=== PATIENT | male | born 1990 | race Caucasian/White ===

== ENCOUNTER 2017-02-15 01:11 | Emergency (ER) | payer OTHER ==
[2017-02-15 01:18] VITALS: TEMP 97.5
--- NOTE | 2017-02-15 01:31 | CPEKG ---
Heart Rate: 65 RR Interval: 923 P-R Interval: 156 QRSD Interval: 76 QT Interval: 404 QTC Interval: 421 P [place]: 68 QRS [place]: 54 T Wave [place]: 23 EKG Severity - NORMAL ECG - EKG Impression: SINUS RHYTHM EKG Impression: ST ELEV, PROBABLE NORMAL EARLY REPOL PATTERN Electronically Signed By: Rosa Bolanos 15-Feb-2017 05:28:31
[2017-02-15] MEDS ORDERED: ACETAMINOPHEN 500 MG TAB PO ONE (02:02)
[2017-02-15] MEDS ORDERED: LIDOCAINE 2% VISCOUS 15 ML UDCUP PO ONE (02:02)
[2017-02-15] MEDS ORDERED: MAG HYDROX/AL HYDROX/SIMETH 30 ML UDCUP PO ONE (02:02)
[2017-02-15] MEDS ORDERED: DICYCLOMINE 10 MG CAP PO ONE (02:02)
--- NOTE | 2017-02-15 03:00 | EDPHY ---
H & P Stated Complaint: r side chest pain, worse on deep breathing Time Seen by Provider: 02/15/17 01:34 HPI/ROS: HPI The patient presents with right-sided chest pain which is sharp in nature, worse with a deep breath, and radiates to his back. It started spontaneously at approximately 11:30 p.m. while he was sleeping. He did take a dose of Zantac an aspirin with continued pain. He describes the pain as both sharp and burning. He has no shortness of breath, nausea, vomiting, dizziness or diaphoresis. He has no leg swelling, recent airplane travel, recent operation, personal or family history of DVT PE.. REVIEW OF SYSTEMS Constitutional: No fever, no chills. Eyes: No discharge. ENT: No sore throat. Cardiovascular: + chest pain, no palpitations. Respiratory: No cough, no shortness of breath. Gastrointestinal: No abdominal pain, no vomiting. Genitourinary: No hematuria. Musculoskeletal: No back pain. Skin: No rashes. Neurological: No headache. PMHx: Healthy Soc Hx: Housed, no drug use PHYSICAL General Appearance: Alert, no distress Eyes: Pupils equal and round no pallor or injection ENT, Mouth: Mucous membranes moist Respiratory: There are no retractions, lungs are clear to auscultation Cardiovascular: Regular rate and rhythm Gastrointestinal: Abdomen is soft and non-tender, no masses, bowel sounds normal Neurological: A&O, moves all extremities Skin: Warm and dry, no rashes Musculoskeletal: Neck is supple non tender Extremities: symmetrical, full range of motion Psychiatric: Patient is oriented X 3, there is no agitation Source: Patient Exam Limitations: No limitations - Personal History Current Tetanus/Diphtheria Vaccine: Yes - Medical/Surgical History Hx Asthma: No Hx Chronic Respiratory Disease: No Hx Diabetes: No Hx Cardiac Disease: No Hx Renal Disease: No Hx Cirrhosis: No Hx Alcoholism: No Hx HIV/AIDS: No Hx Splenectomy or Spleen Trauma: No Other PMH: Denies - Social History Smoking Status: Never smoked Constitutional: Initial Vital Signs Temperature (C) 36.4 C 02/15/17 01:14 Heart Rate 78 02/15/17 01:14 Respiratory Rate 16 02/15/17 01:14 Blood Pressure 140/79 H 02/15/17 01:14 O2 Sat (%) 97 02/15/17 01:14 O2 Delivery Mode Room Air Allergies/Adverse Reactions: No Known Allergies Allergy (Unverified 02/15/17 01:16) Home Medications: Medication Instructions Recorded Famotidine [Pepcid 20 MG (*)] 20 mg PO BID #30 tab 02/15/17 Medical Decision Making - Diagnostics EKG Interpretation: EKG: Complete interpretation has been separately recorded in the [facility] archive. Summary impression: Normal sinus rhythm with early report pattern Imaging Results: Chest x-ray two view shows no cardiomegaly, no pneumothorax, no effusion, interpreted by me, radiology interpretation is pending. Differential Diagnosis: This is a 26-year-old healthy male who presents with spontaneous onset of right- sided chest pain which has been present for the last several hours. Differential diagnosis includes ACS, pericarditis, costochondritis, GERD, pneumothorax. In the emergency department, the patient was given a GI cocktail with complete resolution of his symptoms. EKG and chest x-ray were relatively unremarkable. He will be discharged home with H2 mei and instructions for dietary modification. - Data Points Medications Given: Discontinued Medications Acetaminophen (Tylenol) 1,000 mg PO EDNOW ONE Stop: 02/15/17 02:03 Last Admin: 02/15/17 02:11 Dose: 1,000 mg Al Hydroxide/Mg Hydroxide (Maalox Susp) 30 ml PO EDNOW ONE Stop: 02/15/17 02:03 Last Admin: 02/15/17 02:10 Dose: 30 ml Dicyclomine HCl (Bentyl) 10 mg PO EDNOW ONE Stop: 02/15/17 02:03 Last Admin: 02/15/17 02:10 Dose: 10 mg Lidocaine (Lidocaine 2% Viscous) 5 ml PO EDNOW ONE Stop: 02/15/17 02:03 Last Admin: 02/15/17 02:10 Dose: 5 ml Departure - Departure Disposition: Home, Routine, Self-Care Clinical Impression: Chest pain Qualifiers: Chest pain type: unspecified Qualified Code(s): R07.9 - Chest pain, unspecified GERD (gastroesophageal reflux disease) Qualifiers: Esophagitis presence: esophagitis presence not specified Qualified Code(s): K21.9 - Gastro-esophageal reflux disease without esophagitis Condition: Good Instructions: Diet for Stomach Ulcers and Gastritis (ED), Gastroesophageal Reflux Disease (ED) Additional Instructions: Please take the medication as prescribed. You should return to the ER if your worse in any way. If you continue to have pain despite the medication, you can try Maalox or Tums as well. Referrals: Bella Ray MD [Medical Doctor] - As per Instructions Prescriptions: Famotidine [Pepcid 20 MG (*)] 20 mg PO BID #30 tab
[2017-02-15 03:09] VITALS: BP 111/76; PULSE 56; RESP 18; O2SAT 95
== END 2017-02-15 03:08 | disposition home or self-care (01) ==
DX: K21.9 Gastro-esophageal reflux disease without esophagitis (principal)